=== PATIENT | male | born 1965 | race Caucasian/White ===

== ENCOUNTER 2022-01-14 16:11 | Inpatient (IN) | payer SELFPAY ==
[2022-01-14 16:53] LABS: #Basophils 0.1 10x3/uL (0.0-0.2); #Monocytes 1.1 10x3/uL (0.0-1.1); #Neutrophils 6.1 10x3/uL (1.5-8.4); %Basophils 1.2 % (0.0-2.0); %Eosinophils 0.4 % (0.0-6.0); %Lymphocytes 10.3 % (18.0-47.0); %Monocytes 13.5 % (0.0-10.0); %Neutrophils 74.2 % (40.0-75.0); Hemoglobin 17.2 g/dL (13.5-17.5); Mean Corpuscular HGB CONC 35.2 g/dL (32.0-36.0); Mean Corpuscular Hemoglobin 30.2 pg (27.0-33.0); Mean Corpuscular Volume 85.8 fl (81.2-95.1); Mean Platelet Volume 9.7 fl (7.4-10.4); Platelet Count 177 10x3/uL (150-450); RBC Distribution Width 13.1 % (11.5-14.5); White Blood Cell (WBC) Count 8.2 10x3/uL (3.5-10.5)
[2022-01-14 17:03] LABS: ALT (SGPT) 27 U/L (8-55); AST (SGOT) 26 U/L (5-34); Alkaline Phosphatase 62 U/L (40-110); Anion Gap 14 mmol/L (10-20); BUN (Urea Nitrogen) 10 mg/dL (8.4-25.7); Bilirubin, Total 1.6 mg/dL (0.2-1.2); Calc. Creatinine Clearance 0 mL/min (70-130); Calcium 9.1 mg/dL (7.8-10.44); Carbon Dioxide 24 mmol/L (22-29); Chloride 102 mmol/L (98-107); Estimated GFR 101; Globulin 3.3 g/dL (2.4-3.5); Glucose 103 mg/dL (70-105); Potassium 3.9 mmol/L (3.5-5.1); Protein, Total 7.3 g/dL (6.0-8.3); Sodium 136 mmol/L (136-145)
[2022-01-14] MEDS ORDERED: diphenhydrAMINE 50 MG/ML VIAL ONE (17:31)
[2022-01-14] MEDS ORDERED: Metoclopramide HCl 10 MG/2 ML VIAL ONE (17:31)
[2022-01-14 17:39] LABS: Magnesium 1.8 mg/dL (1.6-2.6)
[2022-01-14] MEDS ORDERED: cefTRIAXone\\ROCEPHIN 2 GM VIAL ONE (17:57)
[2022-01-14] MEDS ORDERED: Azithromycin 500 MG VIAL ONE (17:57)
[2022-01-14 18:07] LABS: SARS-CoV-2 NAA Rapid Test Not Detected (NotDetected)
[2022-01-14] MEDS ORDERED: Aspirin Chewable 81 MG TAB ONE (18:24)
[2022-01-14] MEDS ORDERED: Oseltamivir 75 MG CAP PO SCH (18:30)
[2022-01-14] MEDS ORDERED: Ondansetron ODT 4 MG TAB PO PRN (19:14)
[2022-01-14] MEDS ORDERED: Ondansetron PF 4 MG/2 ML Vial IVP PRN (19:14)
[2022-01-14] MEDS ORDERED: Acetaminophen 325 MG TAB PO PRN (19:14)
[2022-01-14 20:46] VITALS: BMI 38.5
[2022-01-14] MEDS ORDERED: Atorvastatin Calcium 20 MG TAB PO SCH (21:00)
[2022-01-14] MEDS: Sodium Chloride 0.9% 1,000 ML IV SCH (21:47)
[2022-01-14] MEDS: Carvedilol 3.125 MG TAB PO SCH (21:47)
[2022-01-14] MEDS: guaiFENesin/DM ER PO SCH (21:47)
[2022-01-14] MEDS: HYDROcodone/Acetaminophen 5/325 mg Tablet PO PRN (21:49)
[2022-01-15 04:35] LABS: ALT (SGPT) 24 U/L (8-55); AST (SGOT) 17 U/L (5-34); Albumin 3.6 g/dL (3.5-5.0); Alkaline Phosphatase 55 U/L (40-110); Anion Gap 14 mmol/L (10-20); BUN (Urea Nitrogen) 12 mg/dL (8.4-25.7); Bilirubin, Total 1.2 mg/dL (0.2-1.2); Calc. Creatinine Clearance 189 mL/min (70-130); Calcium 8.1 mg/dL (7.8-10.44); Carbon Dioxide 23 mmol/L (22-29); Cardiac Risk 4.6 (Less than 4.5); Chloride 106 mmol/L (98-107); Cholesterol 180 mg/dl (< 200 Desired); Estimated GFR 102; Globulin 2.7 g/dL (2.4-3.5); Glucose 108 mg/dL (70-105); HDL Cholesterol 39 mg/dL (>60 Neg Risk); LDL Cholesterol, Calculated 125 mg/dL; Magnesium 1.8 mg/dL (1.6-2.6); Potassium 3.5 mmol/L (3.5-5.1); Protein, Total 6.3 g/dL (6.0-8.3); Sodium 139 mmol/L (136-145); Triglycerides 79 mg/dL (Less than 150)
[2022-01-15 04:52] LABS: #Basophils 0.1 10x3/uL (0.0-0.2); #Monocytes 1.2 10x3/uL (0.0-1.1); #Neutrophils 3.9 10x3/uL (1.5-8.4); %Basophils 0.9 % (0.0-2.0); %Eosinophils 0.4 % (0.0-6.0); %Lymphocytes 23.3 % (18.0-47.0); %Monocytes 17.2 % (0.0-10.0); %Neutrophils 57.9 % (40.0-75.0); Hemoglobin 16.4 g/dL (13.5-17.5); Mean Corpuscular HGB CONC 34.4 g/dL (32.0-36.0); Mean Corpuscular Hemoglobin 30.1 pg (27.0-33.0); Mean Corpuscular Volume 87.5 fl (81.2-95.1); Mean Platelet Volume 10.2 fl (7.4-10.4); Platelet Count 180 10x3/uL (150-450); RBC Distribution Width 13.2 % (11.5-14.5); Red Blood Cell (RBC) Count 5.45 10x6/uL (4.32-5.72); White Blood Cell (WBC) Count 6.7 10x3/uL (3.5-10.5)
[2022-01-15 04:54] LABS: MDiff Complete? YES
[2022-01-15 06:18] LABS: Band 10 % (5-11); Eosinophils 1 % (0-10); Lymphocytes 22 % (21-51); Monocytes 11 % (0-10); Neutrophil 56 % (42-75)
[2022-01-15 06:19] LABS: Diff Comment (RBC Morph SCRN) NORMAL; Platelet Morphology Comment Appears Adequate
[2022-01-15] MEDS: Sodium Chloride 0.9% 1,000 ML IV SCH (06:27)
[2022-01-15] MEDS: HYDROcodone/Acetaminophen 5/325 mg Tablet PO PRN (06:33)
[2022-01-15] MEDS ORDERED: Aspirin 325 MG TAB PO SCH (09:00)
[2022-01-15] MEDS ORDERED: FLU VACC QS2022-23(6MOS UP)/PF 60 MCG/0.5 ML SYRINGE IM ONE (09:00)
[2022-01-15] MEDS ORDERED: Enoxaparin Sodium 40 MG/0.4 ML SYRINGE SC SCH (09:00)
[2022-01-15] MEDS ORDERED: Lisinopril 2.5 MG TAB PO SCH (09:00)
[2022-01-15] MEDS ORDERED: Prevnar 13-Val Conj/PF 0.5 ML SYRINGE IM ONE (09:00)
[2022-01-15] MEDS: Carvedilol 3.125 MG TAB PO SCH (09:57)
[2022-01-15] MEDS: guaiFENesin/DM ER PO SCH (10:02)
[2022-01-15 11:49] VITALS: BP 145/104; TEMP 99.6
[2022-01-15 18:32] LABS: Hemoglobin A1c 5.8 % (4.0-6.0)
== END 2022-01-15 12:30 | disposition home or self-care (01) | DRG 308 ==
LOC: CSHERS 16:11 → OBSVTOIN 19:14 → CSHTELE 19:14
PROVIDERS: ADMIT Internal Medicine; ATTEND Internal Medicine
DX: I48.0 Paroxysmal atrial fibrillation (principal); J09.X1 Influenza due to identified novel influenza A virus with pneumonia; J18.8 Other pneumonia, unspecified organism; I25.10 Atherosclerotic heart disease of native coronary artery without angina pectoris; E78.5 Hyperlipidemia, unspecified; I10 Essential (primary) hypertension; I49.5 Sick sinus syndrome; I25.5 Ischemic cardiomyopathy; Z20.822 Contact with and (suspected) exposure to COVID-19; I25.2 Old myocardial infarction; Z79.82 Long term (current) use of aspirin; Z79.899 Other long term (current) drug therapy; Z90.49 Acquired absence of other specified parts of digestive tract; Z98.890 Other specified postprocedural states; Z95.0 Presence of cardiac pacemaker
CPT/HCPCS: 36415; 70450; 71045; 80053; 80061; 83036; 83735; 83880; 84443; 84484; 85025; 93005; J0456; J0696; J1200; J1650; J2765; J7050